=== PATIENT | female | born 1965 | race Caucasian/White ===

== ENCOUNTER 2020-04-03 11:48 | Observation (INO) | payer SELFPAY ==
[~2020-04-03] VITALS: Ht 165.1 cm; Wt 61.2 kg
[2020-04-03] MEDS ORDERED: KETOROLAC TROMETHAMINE 30 MG/ML VIAL IV STA (12:06)
[2020-04-03] MEDS ORDERED: SODIUM CHLORIDE 0.9% 1000ML 1,000 ML IV STA (12:06)
[2020-04-03] MEDS ORDERED: MORPHINE SULFATE 2 MG/ML SYR 1ML IV STA (12:06)
[2020-04-03] MEDS ORDERED: ONDANSETRON HCL INJ 2MG/ML 2ML 2 MG/ML VIAL IV STA (12:06)
[2020-04-03] MEDS ORDERED: PANTOPRAZOLE SO40 MG (12:07)
[2020-04-03] MEDS ORDERED: SIMVASTATIN40 MG (12:07)
[2020-04-03] MEDS ORDERED: ACYCLOVIR400 MG (12:07)
[2020-04-03] MEDS ORDERED: TOVIAZ8 MG (12:07)
[2020-04-03] MEDS ORDERED: LEVOCETIRIZINE D5 MG (12:07)
--- OUTSIDE RECORDS SUMMARY | 2020-04-03 12:18 | XMS REPORT | Continuity of Care Document ---
Author Author Small DemonsHERLINDA Small Demons Address Unknown Phone Unavailable Care Team Providers Care Clinical Business Manager Name Role Phone US Toxicology Information [employer] Unavailable Un available Problems Problem Status Onset Date Classification Date Reported Comments Source M54.2 - CERVICALGIA Active 09/02/2019 [facility] [place] Medications No Data Provided for This Section Allergies, Adverse Reactions, Alerts No Known Medication Allergies Immunizations No Data Provided for This Section Results No Data Provided for This Section Pathology Reports No Data Provided for This Section Diagnostic Reports Report Value Date Source Spine cervical 2 or 3 view DX Exam: Spine cervical 2 or 3 view DX Reason for Exam: Cervicalgia Comparison Exam: None Discussion: On lateral view, the cervical spine is seen from the C1 vertebral body level down through the C7/T1 junction. Vertebral body heights are maintained. Mild grade 1 anterolisthesis seen of C7 on T1. Mild loss in disc height seen at the C5/C6 level. No suspicious osteoblastic or osteolytic lesions. Prevertebral soft tissue is within normal limits. Lateral masses of C1 and dens of C2 appear intact. Please note that a cervical spine x-ray cannot rule out ligamentous injuries or spinal cord abnormalities. Visualized portions of the lung apices are unremarkable. Impression: 1. Vertebral body heights are maintaine d. Mild grade 1 anterolisthesis seen of C7 on T1. Mild loss in disc height seen at the C5/C6 level. 09/05/2019 [facility] [place] Consultation Notes No Data Provided for This Section Discharge Summaries No Data Provided for This Section History and Physicals No Data Provided for This Section Vital Signs No Data Provided for This Section Encounters Location Location Details Encounter Type Encounter Number Reason For Visit Attending Provider ADM Date DC Date Status Source [facility] - [place] Outpt Diag Services [id number] 00 Becky Coles 09/05/2019 09/06/2019 [facility] [place] Procedures No Data Provided for This Section Assessment and Plan No Data Provided for This Section Plan of Care No Data Provided for This Section Social History Social History Date Source Social History TypeResponse 09/06/2019 MH [facility] [place] Family History No Data Provided for This Section Advance Directives No Data Provided for This Section Functional Status No Data Provided for This Section
[2020-04-03 12:29] LABS: BASOPHILS % 0.3 % (0.0-1.0); EOSINOPHILS % 0.2 % (0.0-6.0); HEMATOCRIT 39.9 % (34.2-44.1); HEMOGLOBIN 13.6 g/dL (12.0-16.0); LYMPHOCYTES % 15.1 % (18.0-39.1); MEAN CORPUSCULAR HEMOGLOBIN 28.9 pg (28-32); MEAN CORPUSCULAR HGB CONC 34.1 g/dL (31-35); MEAN CORPUSCULAR VOLUME 84.7 fL (81-99); MONOCYTES # (AUTO) 0.6 (0.2-0.8); MONOCYTES % 4.6 % (4.4-11.3); NEUTROPHILS # (AUTO) 10.2 (2.1-6.9); NEUTROPHILS % 79.4 % (38.7-80.0); PLATELET COUNT 279 x10e3/uL (140-360); RED BLOOD COUNT 4.71 x10e6/uL (3.6-5.1); RED CELL DISTRIBUTION WIDTH 12.5 % (11.7-14.4)
[2020-04-03 12:38] LABS: CLARITY,URINE CLEAR (CLEAR); COLOR,URINE YELLOW (YELLOW); LEUKOCYTE ESTERASE ,URINE NEGATIVE (NEGATIVE); NITRITE,URINE NEGATIVE (NEGATIVE); PROTEIN,URINE DIPSTICK 1+ (NEGATIVE)
[2020-04-03 12:39] LABS: BILIRUBIN,URINE SMALL (NEGATIVE); KETONES,URINE NEGATIVE (NEGATIVE); URINE UROBILINOGEN 0.2 mg/dL (0.2 - 1)
[2020-04-03 12:43] LABS: BACTERIA,URINE FEW /HPF; EPITHELIAL CELLS,URINE MODERATE /LPF; MUCUS,URINE FEW (RARE)
[2020-04-03 12:44] LABS: INR 0.99; PROTHROMBIN TIME 13.6 seconds (11.9-14.5)
[2020-04-03 12:45] LABS: PARTIAL THROMBOPLASTIN TIME 34.1 seconds (23.8-35.5)
--- NOTE | 2020-04-03 12:49 | Diagnostic Imaging Report ---
TECHNIQUE: Frontal view of the chest. INDICATION: ^ABD PAIN ^[id number] ^1230 COMPARISON: None DISCUSSION: Limited evaluation due to portable technique. Lines and hardware: None Heart and mediastinum: Cardiomediastinal silhouette and mediastinal contours are within normal limits. Trachea projects midline. Lungs and pleura: No focal airspace consolidation. No pleural effusion. No pneumothorax. Soft tissues and bones: No acute abnormality. IMPRESSION: Negative for acute intrathoracic process. Signed by: Scout Duarte MD on 04/03/2020 12:45 PM
[2020-04-03 12:51] LABS: ALANINE AMINOTRANSFERASE 15 IU/L (0-55); ALKALINE PHOSPHATASE 49 IU/L (40-150); ANION GAP 17.3 mmol/L (8-16); BLOOD UREA NITROGEN 14 mg/dL (7-26); BUN/CREATININE RATIO 16 (6-25); CALCIUM 9.5 mg/dL (8.4-10.2); CARBON DIOXIDE 24 mmol/L (22-29); CHLORIDE 100 mmol/L (98-107); EST GLOMERULAR FILTRATION RATE > 60 ML/MIN (60-); GLUCOSE 112 mg/dL (74-118); POTASSIUM 3.3 mmol/L (3.5-5.1); SODIUM 138 mmol/L (136-145)
[2020-04-03 13:11] LABS: ALBUMIN/GLOBULIN RATIO 1.8 (0.8-2.0)
--- NOTE | 2020-04-03 13:52 | Diagnostic Imaging Report ---
CT of the abdomen and pelvis with contrast TECHNIQUE: CT of the abdomen and pelvis WITH intravenous contrast and WITHOUT oral contrast. Dose modulation, iterative reconstruction, and/or weight-based adjustment of the mA/kV was utilized to reduce the radiation dose to as low as reasonably achievable. IV CONTRAST: 100 mL of Isovue-370 ORAL CONTRAST: None RADIATION DOSE: Total DLP: 189 mGy*cm COMPLICATIONS: None INDICATION: ^RLQ ABD PAIN. COMPARISON: None. FINDINGS: LOWER THORAX: Unremarkable. HEPATOBILIARY: No focal hepatic lesions. Mild fatty infiltration of the falciform ligament is noted. Gallbladder is unremarkable. No biliary ductal dilatation. SPLEEN: No splenomegaly. PANCREAS: No focal masses or ductal dilatation. ADRENALS: No adrenal nodules. KIDNEYS/URETERS: No hydronephrosis, stones, or masses. PELVIC ORGANS/BLADDER: Urinary bladder is unremarkable. Uterus is present and unremarkable. Ovaries are not well visualized or assessed. PERITONEUM/RETROPERITONEUM: No free air or fluid. LYMPH NODES: No lymphadenopathy. VESSELS: Unremarkable. GI TRACT: Suboptimally evaluated due to lack of oral contrast. Negative for obstruction. Stomach is unremarkable. Distal colon is decompressed limiting evaluation. The cecum and ascending colon are identified within the pelvis. The appendix is dilated and fluid-filled with surrounding enhancement wall thickening measuring up to 1 cm in diameter. The appendix is located along the right pelvic sidewall (axial image 66). No surrounding fluid collection is identified. Mild surrounding inflammatory changes are noted. BONES AND SOFT TISSUES: Negative for acute osseous abnormality. No suspicious lytic or blastic lesion is identified. Soft tissues are unremarkable. IMPRESSION: 1. Acute appendicitis. No evidence of perforation or adjacent fluid collection. The cecum is located within the midline deep pelvis and the appendix is noted along the right pelvic sidewall at the level of the right acetabulum. It measures up to 1 cm in diameter and demonstrates internal fluid density and hyperenhancement of the wall with mild surrounding inflammatory change. The above findings were discussed with Dr. Fox on 04/03/2020 1:40 PM, who responded indicating that the communication was understood. Signed by: Scout Duarte MD on 04/03/2020 1:48 PM
[2020-04-03] MEDS ORDERED: IOPAMIDOL 370 MG/ML 200 ML INFUS..BTL INJ ONE (14:04)
[2020-04-03] MEDS ORDERED: SODIUM CHLORIDE 0.9% 50ML 50 ML ONE (14:04)
[2020-04-03] MEDS ORDERED: MORPHINE SULFATE 2 MG/ML SYR 1ML IV PRN (14:15)
[2020-04-03] MEDS ORDERED: MORPHINE SULFATE INJ 4 MG/ML INJ 1ML IV PRN ×2 (14:30)
--- OUTSIDE RECORDS SUMMARY | 2020-04-03 14:43 | XMS REPORT | Continuity of Care Document ---
Author Author Comunit[employer]HERLINDA [employer] Address Unknown Phone Unavailable Care Team Providers Care Billet Header Name Role Phone panpan Information [employer] Unavailable Un available Problems Problem Status Onset Date Classification Date Reported Comments Source M54.2 - CERVICALGIA Active 09/02/2019 [facility] [place] Medications No Data Provided for This Section [...] seen at the C5/C6 level. 09/05/2019 [facility] [place] Consultation Notes No Data Provided for This Section Discharge Summaries No Data Provided for This Section History and Physicals No Data Provided for This Section Vital Signs No Data Provided for This Section Encounters Location Location Details Encounter Type Encounter Number Reason For Visit Attending Provider ADM Date DC Date Status Source [facility] Out[facility] - [place] Outpt Diag Services [id number] Becky Coles 09/05/2019 09/06/2019 [facility] [place] Procedures No Data Provided for This Section Assessment and Plan No Data Provided for This Section Plan of Care No Data Provided for This Section Social History Social History Date Source Social History TypeResponse 09/06/2019 [facility] [place] Family History No Data Provided for This Section Advance Directives No Data Provided for This Section Functional Status No Data Provided for This Section
--- OUTSIDE RECORDS SUMMARY | 2020-04-03 14:43 | XMS REPORT | Continuity of Care Document ---
Author Author [facility] t Organization [facility] Address Formerly [facility] [address] [place] [address] Phone Unavailable Care Team Providers Care Head Of Integrated Media Name Role Phone Kashif HERNANDEZ Attphyelsy Unavailable Becky Coles Attlawrence Problems Condition Name Condition Details Condition Category Status Onset Date Resolution Date Last Treatment Date Treating Clinician Comments Source M54.2 - CERVICALGIA M54. 2 - CERVICALGIA Active 09/02/2019 YOSEF Fernando Diagnosis Active 2019-09-02 00:01:00 2019-09-05 10:10: 00 Siri Blankenship Allergies, Adverse Reactions, Alerts This patient has no known allergies or adverse reactions. Medications This patient has no known medications. Procedures This patient has no known procedures. Encounters Start Date/Time End Date/Time Encounter Type Admission Type [facility] Care Department Encounter ID Source 2019-09-05 10:01:00 2019-09-05 23:59:00 Outpatient Becky Coles [facility] [place] [place] [id number] Results Test Description Test Time Test Comments Results Result Comments Source CT ABDOMEN/PELVIS W 2020-04-03 13:40:00 [facility] [address] [place], [place] [address] Patient Name: HERLINDA JACKSON MR #: [id number] : 1965 Age/Sex: 54/F Req #: [id number] Adm Physician: Ordered by: OVIDIO HERNANDEZ MD Report #: [id number] Location: ER Room/Bed: Procedure: [id number] CT/CT ABDOMEN/PELVIS W Exam Date: 04/03/20 Exam Time: 1314 REPORT STATUS: Signed CT of the abdomen and pelvis with contrast TECHNIQUE: CT of the abdomen and pelvis WITH intravenous contrast and WITHOUT oral contrast. Dose modulation, iterative reconstruction, and/or weight-based adjustment of the mA/kV was utilized to reduce the radiati on dose to as low as reasonably achievable. IV CONTRAST: 100 mL of Isovue-370 ORAL CONTRAST: None RADIATION DOSE: Total DLP: 189 mGy*cm COMPLICATIONS: None INDICATION: RLQ ABD PAIN. COMPARISON: None. FINDINGS: LOWER THORAX: Unremarkable. HEPATOBILIARY: No focal hepatic lesions. Mild fatty infiltration of the falciform ligament is noted. Gallbladder is unremarkable. No biliary ductal dilatation. SPLEEN: No splenomegaly. PANCREAS: No focal masses or ductal dilatation. ADRENALS: No adrenal nodules. KIDNEYS/URETERS: No hydronephrosis, stones, or masses. PELVIC ORGANS/BLADDER: Urinary bladder is unremarkable. Uterus is present and unremarkable. Ovaries are not well visualized or assessed. PERITONEUM/RETROPERITONEUM: No free air or fluid. LYMPH NODES: No lymphadenopathy. VESSELS: Unremarkable. GI TRACT: Suboptimally evaluated due to lack of oral contrast. Negative for obstruction. Stomach is unremarkable. Distal colon is decompressed limiting evaluation. The cecum and ascending colon are identified within the pelvis. The appendix is dilated and fluid-filled with surrounding enhancement wall thickening measuring up to 1 cm in diameter. The appendix is located along the right pelvic sidewall (axial image 66). No surrounding fluid collection is identified. Mild surrounding inflammatory changes are noted. BONES AND SOFT TISSUES: Negative for acute osseous abnormality. No suspicious lytic or blastic lesion is identified. Soft tissues are unremarkable. IMPRESSION: 1. Acute appendicitis. No evidence of perforation or adjacent fluid collection. The cecum is located within the midline deep pelvis and the appendix is noted along the right pelvic sidewall at the level of the right acetabulum. It measures up to 1 cm in diameter and demonstrates internal fluid density and hyperenhancement of the wall with mild surrounding inflammatory change. The above findings were discussed with Dr. Hernandez on 04/03/2020 1:40 PM, who responded indicating that the communication was understood. Signed by: Du Duarte MD on 04/03/2020 1:48 PM Dictated By: DU DUARTE MD 1348 Transcribed By: JENIFFER on 04/03/20 1348 COPY TO: OVIDIO HERNANDEZ MD CHEST SINGLE (PORTABLE) 2020-04-03 12:45:00 [place] [address] Patient Name: HERLINDA JACKSON MR #: [id number] : 1965 Age/Sex: 54/F Req #: [id number] Adm Physician: Ordered by: OVIDIO HERNANDEZ MD Report #: [id number] Location: ER Room/Bed: Procedure: [id number] DX/CHEST SINGLE (PORTABLE) Exam Date: 04/03/20 Exam Time: 1230 REPORT STATUS: Signed TECHNIQUE: Frontal view of the chest. INDICATION: ABD PAIN 20200403 1230 COMPARISON: None DISCUSSION: Limited evaluation due to portable technique. Lines and hardware: None Heart and mediastinum: Cardiomediastinal silhouette and m ediastinal contours are within normal limits. Trachea projects midline. Lungs and pleura: No focal airspace consolidation. No pleural effusion. No pneumothorax. Soft tissues and bones: No acute abnormality. IMPRESSION: Negative for acute intrathoracic process. Signed by: Du Duarte MD on 04/03/2020 12:45 PM Dictated By: DU DUARTE MD 1245 Transcribed By: JENIFFER on 04/03/20 1245 COPY TO: OVIDIO HERNANDEZ MD SCR MAMM BILATERAL KENNY CAD DIGITAL 2019-07-28 09:47:46 - SCR MAMM BILATERAL KENNY CAD DIGITALBILATERAL DIGITAL SCREENING MAMMOGRAM 3D/2D WITH CAD: 07/18/2019CLINICAL: Asymptomatic. Digital breast tomosynthesis was performed in addition to routine CC and MLO views. Current mammographic images were evaluated by either a Perfusix M-Vu or an PlayMotionD version 7.2 computer aided detection system. Comparison is made to exams dated 07/30/2017 mammogram - [facility], 09/13/2015 mammogram, and 05/10/2014 mammogram - [facility]. The tissue of both breasts is predominantly fatty. There is mild vascular calcifications in both breasts. No suspicious new mass, architectural distortion, malignant type calcification, or lymph node abnormality detected. Breast architecture is stable compared to prior exams.IMPRESSION: BENIGNThere is no mammographic evidence of malignancy. Resume annual screening mammography in one year. Bari Soliman M.D. rb/:07/28/2019 09:47:46 Entry: - 07/28/2019 09:47:46Imaging Technologist: Meme ROSAS, [facility] sent: BIRADS 1-2 Normal Mammogram BI-RADS: 2 Benign
[2020-04-03] MEDS: D5.45%NS/KCL 20MEQ 1,000 ML IV SCH ×2 (14:56→18:53)
--- NOTE | 2020-04-03 15:33 | NUR ---
PATIENT EN ROUTE TO OR AT THIS TIME
--- NOTE | 2020-04-03 15:33 | NUR ---
REPORT GIVEN TO NIURKA OTOOLE
[2020-04-03] MEDS ORDERED: BUPIVACAINE 0.5%/EPI 30 ML SDV INJ ONE (16:08)
[2020-04-03] MEDS ORDERED: SUGAMMADEX SODIUM 200 MG/2 ML VIAL IV ONE (16:27)
--- OUTSIDE RECORDS SUMMARY | 2020-04-03 17:10 | XMS REPORT | Continuity of Care Document ---
Author Author [employer] Address Unknown Phone Unavailable Care Team Providers Care Air Quality Manager Name Role Phone [employer] Information [employer] Unavailable Un available Problems Problem Status Onset Date Classification Date Reported Comments Source M54.2 - CERVICALGIA Active 09/02/2019 [facility] [place] Medications No Data Provided for This Section [...] seen at the C5/C6 level. 09/05/2019 [facility] [place] Consultation Notes No Data Provided for This Section Discharge Summaries No Data Provided for This Section History and Physicals No Data Provided for This Section Vital Signs No Data Provided for This Section Encounters Location Location Details Encounter Type Encounter Number Reason For Visit Attending Provider ADM Date DC Date Status Source [facility] Out[facility] - [place] Outpt Diag Services [id number] 00 Becky Coles 09/05/2019 09/06/2019 [facility] [place] Procedures No Data Provided for This Section Assessment and Plan No Data Provided for This Section Plan of Care No Data Provided for This Section Social History Social History Date Source Social History TypeResponse 09/06/2019 MH [facility] [place] Family History No Data Provided for This Section Advance Directives No Data Provided for This Section Functional Status No Data Provided for This Section
--- OUTSIDE RECORDS SUMMARY | 2020-04-03 17:10 | XMS REPORT | Continuity of Care Document ---
Author Author [facility] t Organization [facility] Address [facility]ly [facility] [address] [place] [address] Phone Unavailable Care Team Providers Care Multiplex Operator Name Role Phone Kashif HERNANDEZ Attphyelsy Unavailable [...] Date/Time End Date/Time Encounter Type Admission Type [facility] Care Department Encounter ID Source 2019-09-05 10:01:00 2019-09-05 23:59:00 Outpatient Becky Coles [facility] [id number] Results Test Description Test Time Test Comments Results Result Comments Source CT ABDOMEN/PELVIS W 2020-04-03 13:40:00 [facility] [address] [place], [place] [address] Patient Name: HERLINDA JACKSON MR #: [id number] : 1965 Age/Sex: 54/F Req #: [id number] Adm Physician: Ordered by: OVIDIO HERNANDEZ MD Report #: [id number] Location: ER Room/Bed: Procedure: [id number] CT/CT ABDOMEN/PELVIS W Exam Date: 04/03/20 Exam [...] HERNANDEZ MD CHEST SINGLE (PORTABLE) 2020-04-03 12:45:00 [place] [address] Patient Name: HERLINDA JACKSON MR #: [id number] : 1965 Age/Sex: 54/F Req #: [id number] Adm Physician: Ordered by: OVIDIO HERNANDEZ MD Report #: [id number] Location: ER Room/Bed: Procedure: [id number] DX/CHEST SINGLE (PORTABLE) Exam Date: 04/03/20 Exam [...] mammographic images were evaluated by either a Xangati M-Vu or an VeedMeD version 7.2 computer aided detection system. Comparison is made to exams dated 07/30/2017 mammogram - [facility], 09/13/2015 mammogram, and 05/10/2014 mammogram - [facility]. The tissue of both breasts [...] - 07/28/2019 09:47:46Imaging Technologist: Meme ROSAS, [facility] sent: BIRADS 1-2 Normal Mammogram BI-RADS: 2 Benign
[2020-04-03 17:46] VITALS: BP 118/68
[2020-04-03] MEDS ORDERED: MIDAZOLAM HCL 2 MG/2 ML VIAL ONE (17:46)
[2020-04-03] MEDS ORDERED: FENTANYL CITRATE/PF 100MCG/2 ML INJ ONE (17:46)
[2020-04-03] MEDS ORDERED: PIPER-TAZ 3.375 GM 50 ML IV SCH (18:00)
[2020-04-03 18:03] VITALS: BP 118/68
--- NOTE | 2020-04-03 18:10 | NUR ---
PATIENT ARRIVED TO THE UNIT VIA STRETCHER @ 1810. PATIENT IN STABLE CONDITION, NO S/S OF DISTRESS. IV FLUIDS INFUSING, SITE ASYMPTOMATIC AND PATENT, TRANSPARENT DRESSING C/D/I. DRESSINGS X3 TO THE ABDOMINAL AREA D/T SURGERY. BED IN LOWEST POSITION AND LOCKED, SIDE RAILS X 2. CALL LIGHT WITHIN REACH.
--- NOTE | 2020-04-03 18:29 | Operative Report ---
DATE OF PROCEDURE: 04/03/2020 SURGEON: Pablo Rivera MD PREOPERATIVE DIAGNOSIS: Appendicitis. POSTOPERATIVE DIAGNOSIS: Appendicitis. OPERATIVE PROCEDURE: Laparoscopic appendectomy. ANESTHESIA: General; Dr. Polo. INDICATIONS: A 54-year-old female, 1-day history of pain in right lower quadrant with CT scan showing inflamed appendix. The patient consented for laparoscopic appendectomy. Attendant risks discussed. PROCEDURE FINDINGS: Acute appendicitis. DESCRIPTION OF PROCEDURE: The patient was brought to OR, intubated. The abdomen was prepped and draped in sterile fashion. Infraumbilical incision was made and a 10 mm port inserted. Insufflation then began. Under direct vision, other port sites placed in the right lower quadrant and the suprapubic region. The appendix was localized, noted to be grossly inflamed, but not perforated. The mesoappendix controlled with LigaSure down to the neck, which was snared with the Endoloop ties of 0 PDS. The appendix was then amputated distal to the tie and the appendix placed in an Endopouch and retrieved out of the peritoneal cavity. Operative field was then irrigated. Hemostasis was achieved. All ports removed under direct vision. Fascia closure with 0 Vicryl. Skin was closed with subcuticular stitch. The patient was extubated and transported to recovery room. BLOOD LOSS: 5 mL. Pablo Rivera MD DNL/MODL /[id number]
--- NOTE | 2020-04-03 18:29 | Consultation ---
DATE OF CONSULTATION: 04/03/2020 CHIEF COMPLAINT: Abdominal pain. HISTORY OF PRESENT ILLNESS: A 54-year-old female, 1-day history of pain in the right lower quadrant with nausea. No vomiting. No fever, chills, or diarrhea. PAST MEDICAL HISTORY: Unremarkable for chronic illness. PAST SURGICAL HISTORY: Positive for tubal ligation. SOCIAL HABITS: No smoking or alcohol abuse. REVIEW OF SYSTEMS: No chest pain, shortness of breath, cough, or fevers. ALLERGIES: TO CEPHALOSPORIN, ERYTHROMYCIN, NAPROSYN, LEVAQUIN, PRILOSEC, AND CELEBREX. PHYSICAL EXAMINATION: VITAL SIGNS: Stable, afebrile. GENERAL: She is awake, alert, in moderate discomfort. HEENT: Sclerae nonicteric. NECK: Supple. LUNGS: Clear. HEART: Regular rate and rhythm. ABDOMEN: Soft with guarding tenderness in right lower quadrant with minimal rebound. EXTREMITIES: No cyanosis or edema. LABORATORY DATA: White cell count 13. Creatinine 0.9. Abdominal CT revealed an inflamed and dilated appendix with no perforation. ASSESSMENT: Acute appendicitis. PLAN: Laparoscopic appendectomy. Attendant risks discussed. Pablo Rivera MD DNL/MODL /[id number]
[2020-04-03] MEDS: ONDANSETRON HCL INJ 2MG/ML 2ML 2 MG/ML VIAL IV PRN (18:36)
--- NOTE | 2020-04-03 19:18 | NUR ---
COMPLETED BEDSIDE REPORT AND ROUNDING WITH THE ONCOMING NIGHT NURSE. PATIENT IN STABLE CONDITION, NO S/S OF DISTRESS. IV FLUIDS INFUSING, SITE ASYMPTOMATIC AND PATENT, TRANSPARENT DRESSING C/D/I. DRESSINGS X3 TO THE ABDOMINAL AREA D/T SURGERY C/D/I. BED IN LOWEST POSITION AND LOCKED, SIDE RAILS X 2. CALL LIGHT WITHIN REACH.
[2020-04-03 20:00] VITALS: BP 101/61
[2020-04-03] MEDS: PIPER-TAZ 3.375 GM 50 ML IV SCH (20:04)
[2020-04-03 21:25] VITALS: BP 101/61
[2020-04-03] MEDS ORDERED: ETOMIDATE 2 MG/ML 10 ML INJ IV ONE (21:37)
[2020-04-03] MEDS ORDERED: DEXAMETHASONE SOD PHOS INJ 4 MG/ML VIAL ONE (21:37)
[2020-04-03] MEDS ORDERED: ROCURONIUM BROMIDE 10 MG/ML 5ML VIAL IV ONE (21:37)
[2020-04-03] MEDS ORDERED: SEVOFLURANE INHAL SOLN 250 ML PEN BTL ONE (21:37)
[2020-04-03] MEDS ORDERED: PROPOFOL IV EMULSION 10 MG/ML 20 ML VIAL ONE (21:37)
[2020-04-04] VITALS (8 sets, daily range): BP systolic 103–132; BP diastolic 62–86
[2020-04-04] MEDS: D5.45%NS/KCL 20MEQ 1,000 ML IV SCH ×3 (03:09→20:08)
[2020-04-04] MEDS: PIPER-TAZ 3.375 GM 50 ML IV SCH ×4 (03:09→21:29)
[2020-04-04 06:02] LABS: HEMATOCRIT 32.7 % (34.2-44.1); HEMOGLOBIN 10.9 g/dL (12.0-16.0); LYMPHOCYTES # (AUTO) 0.8 (1.0-3.2); LYMPHOCYTES % 12.2 % (18.0-39.1); MEAN CORPUSCULAR HEMOGLOBIN 28.5 pg (28-32); MEAN CORPUSCULAR HGB CONC 33.3 g/dL (31-35); MEAN CORPUSCULAR VOLUME 85.4 fL (81-99); MONOCYTES # (AUTO) 0.3 (0.2-0.8); MONOCYTES % 4.5 % (4.4-11.3); NEUTROPHILS # (AUTO) 5.7 (2.1-6.9); NEUTROPHILS % 82.9 % (38.7-80.0); PLATELET COUNT 204 x10e3/uL (140-360); RED BLOOD COUNT 3.83 x10e6/uL (3.6-5.1); RED CELL DISTRIBUTION WIDTH 12.7 % (11.7-14.4)
[2020-04-04 06:21] LABS: ALANINE AMINOTRANSFERASE 11 IU/L (0-55); ALBUMIN 3.8 g/dL (3.5-5.0); ALBUMIN/GLOBULIN RATIO 1.8 (0.8-2.0); ALKALINE PHOSPHATASE 39 IU/L (40-150); ANION GAP 15.2 mmol/L (8-16); BLOOD UREA NITROGEN 9 mg/dL (7-26); BUN/CREATININE RATIO 11 (6-25); CALCIUM 8.3 mg/dL (8.4-10.2); CARBON DIOXIDE 23 mmol/L (22-29); CHLORIDE 105 mmol/L (98-107); CREATININE, SERUM 0.83 mg/dL (0.57-1.11); EST GLOMERULAR FILTRATION RATE > 60 ML/MIN (60-); GLUCOSE 137 mg/dL (74-118); POTASSIUM 4.2 mmol/L (3.5-5.1); SODIUM 139 mmol/L (136-145)
--- NOTE | 2020-04-04 06:56 | NUR ---
Bedside report and walking rounds completed with oncoming nurse. Patient in bed with call light within reach. No issues or concerns noted.
--- NOTE | 2020-04-04 07:00 | NUR ---
RECEIVED BEDSIDE REPORT AND ROUNDING WITH THE OFF GOING NIGHT NURSE. PATIENT IN STABLE CONDITION, NO S/S OF DISTRESS. IV FLUIDS INFUSING, SITE ASYMPTOMATIC AND PATENT, TRANSPARENT DRESSING C/D/I. DRESSINGS X3 TO THE ABDOMINAL AREA D/T SURGERY C/D/I. BED IN LOWEST POSITION AND LOCKED, SIDE RAILS X 2. CALL LIGHT WITHIN REACH.
[2020-04-04] MEDS ORDERED: PANTOPRAZOLE SOD 40 MG TABEC PO ONE (10:45)
[2020-04-04] MEDS: ONDANSETRON HCL INJ 2MG/ML 2ML 2 MG/ML VIAL IV PRN (14:22)
--- NOTE | 2020-04-04 19:02 | NUR ---
COMPLETED BEDSIDE REPORT AND ROUNDING WITH THE ONCOMING NIGHT NURSE. PATIENT IN STABLE CONDITION, NO S/S OF DISTRESS. IV FLUIDS INFUSING, SITE ASYMPTOMATIC AND PATENT, TRANSPARENT DRESSING C/D/I. DRESSINGS X3 TO THE ABDOMINAL AREA D/T SURGERY C/D/I. NO PAIN VOICED. BED IN LOWEST POSITION AND LOCKED, SIDE RAILS X 2. CALL LIGHT WITHIN REACH.
[2020-04-05] MEDS: PIPER-TAZ 3.375 GM 50 ML IV SCH ×2 (03:12→08:34)
[2020-04-05] MEDS: D5.45%NS/KCL 20MEQ 1,000 ML IV SCH (03:24)
[2020-04-05 04:00] VITALS: BP 117/68
--- NOTE | 2020-04-05 07:00 | NUR ---
RECEIVED BEDSIDE REPORT WITH THE OFF GOING NIGHT NURSE. PATIENT IN STABLE CONDITION, NO S/S OF DISTRESS. IV FLUIDS INFUSING, SITE ASYMPTOMATIC AND PATENT, TRANSPARENT DRESSING C/D/I. DRESSINGS X3 TO THE ABDOMINAL AREA D/T SURGERY C/D/I. BED IN LOWEST POSITION AND LOCKED, SIDE RAILS X 2, NONSKID SOCKS APPLIED. CALL LIGHT WITHIN REACH.
--- NOTE | 2020-04-05 07:03 | NUR ---
REPORT GIVEN TO DAYSHIFT NURSE. ALERT AND RESTING IN BED. NO SIGNS IV INFILTRATION. BED LOCKED AND IN LOW POSITION. CALL LIGHT WITHIN REACH.
[2020-04-05 07:58] VITALS: BP 128/79
[2020-04-05 08:13] VITALS: BP 128/79
--- NOTE | 2020-04-05 10:54 | NUR ---
PATIENT DISCHARGED HOME. PATIENT OFF THE UNIT @ 1052 VIA WHEELCHAIR TO THE LOBBY ACCOMPANIED BY PCT. PATIENT IN STABLE CONDITION, NO S/S OF DISTRESS NOTED. NO PAIN VOICED. IV ACCESS REMOVED WITH TIP INTACT. ALL PERSONAL ITEMS TAKEN WITH THE PATIENT. DISCHARGE TEACHING AND INSTRUCTION GIVEN TO THE PATIENT. PATIENT VERBALIZED UNDERSTANDING. DISCHARGE PAPERWORK GIVEN TO THE PATIENT.
--- NOTE | 2020-04-05 13:33 | Discharge Summary ---
DISCHARGE DIAGNOSES: Acute appendicitis, status post laparoscopic appendectomy by Dr. Rivera. No complications. HISTORY OF PRESENT ILLNESS AND HOSPITAL COURSE: See hospital chart for full details. The patient is a lady, who presented with right lower quadrant abdominal pain for about 24 hours, which was noticed on my exam and evidence of acute appendicitis. She was sent to the emergency room where CT scan confirmed acute appendicitis with no perforation. She was taken to the OR and had a laparoscopic appendectomy performed by Dr. Rivera with no complications. Postoperatively, she did have some nausea, but this has since resolved. Her pain is under good control, but she states that she does not need any pain medicines to go home with . She was passing gas. She was ambulating well, eating well with no issues, so she was discharged home in good condition and follow up with Dr. Rivera in about 7 to 14 days and to call or return back to the emergency room if the pain worsens. Please see hospital chart for full details. MD NURA Moreau/NATA /[id number]
== END 2020-04-05 10:55 | disposition home or self-care (01) ==
LOC: ER 11:50 → ERHOLD 14:10 → UNDOADMOB 14:10 → OR 15:31 → MED/SURG 17:06
PROVIDERS: ADMIT Internal Medicine; ATTEND Internal Medicine
DX: K35.80 Unspecified acute appendicitis (principal); Z11.59 Encounter for screening for other viral diseases; E78.5 Hyperlipidemia, unspecified; I10 Essential (primary) hypertension
CPT/HCPCS: 36415; 71045; 74177; 80053; 81001; 85025; 85610; 85730; 87086; 88304; 99284; G0378; J1100; J2250; J2270; J2405; J2543; J3010; J7030; Q9967; U0002